=== PATIENT | female | born 1970 | race Two or more races ===

== ENCOUNTER 2018-01-09 10:07 | Emergency (ER) | payer BC ==
[~2018-01-09] VITALS: Ht 160 cm; Wt 59.0 kg
[2018-01-09 10:21] VITALS: BP 125/74
[2018-01-09] MEDS ORDERED: METHOCARBAMOL 500 MG TAB PO ONE (11:00)
[2018-01-09] MEDS ORDERED: KETOROLAC TROMETH 60MG/2ML VIAL IM ONE (11:00)
== END 2018-01-09 10:58 | disposition home or self-care (01) ==
LOC: ER 10:07
DX: S22.31XA Fracture of one rib, right side, initial encounter for closed fracture (principal); Z98.51 Tubal ligation status; W19.XXXA Unspecified fall, initial encounter; Y93.89 Activity, other specified; Y99.8 Other external cause status; Y92.89 Other specified places as the place of occurrence of the external cause
CPT/HCPCS: 71101